=== PATIENT | male | born 1940 | race Caucasian/White ===

== ENCOUNTER 2019-04-30 09:22 | Inpatient (IN) | payer MEDICARE, BC ==
[2019-04-30] VITALS (10 sets, daily range): BP systolic 114–172; BP diastolic 55–85
[~2019-04-30] VITALS: Ht 175.3 cm; Wt 53.3 kg
--- NOTE | 2019-04-30 09:40 | NUR ---
PATIENT BROUGHT BACK FROM TRIAGE WITH CHIEF COMPLAINT OF- WORRIED HE HAD A STROKE SEVERAL DAYS AGO- REPORTS DIZZINESS, DIFFICULTY FINDING WORDS, SLURRED SPEECH, WEAKNESS. DROVE SELF HERE TODAY. DENIES THESE SYMPTOMS NOW. STATES HE HAS HX OF STROKE. ALSO WORRIED HE HAS A BACKED UP COLON. PATIENT AMBULATED FROM TRIAGE
--- NOTE | 2019-04-30 09:50 | NUR ---
PATIENT TO CT
[2019-04-30] MEDS: PLEASE ENTER ALLERGIES MC SCH ×2 (10:14→11:28)
[2019-04-30 10:26] LABS: BASOPHILS # (AUTO) 0.01 x10^3/uL (0-0.1); BASOPHILS % (AUTO) 0 % (0-1); EOSINOPHILS # (AUTO) 0.12 x10^3/uL (0-0.4); EOSINOPHILS % (AUTO) 2 % (1-7); LYMPHOCYTES # (AUTO) 1.26 x10^3/uL (1-3.4); LYMPHOCYTES % (AUTO) 20 % (22-44); MD NO; MEAN CORPUSCULAR HEMOGLOBIN 33.3 pg (27.5-34.5); MEAN CORPUSCULAR HGB CONC 33.1 g/dL (33.2-36.2); MEAN CORPUSCULAR VOLUME 100.6 fL (81-97); MONOCYTES # (AUTO) 0.64 x10^3/uL (0.2-0.8); MONOCYTES % (AUTO) 10 % (2-9); NEUTROPHILS # (AUTO) 4.27 x10^3/uL (1.8-6.8); NEUTROPHILS % (AUTO) 68 % (42-75); PLATELET COUNT 190 x10^3/uL (130-400); RED BLOOD COUNT 4.81 x10^6/uL (4.38-5.82); RED CELL DISTRIBUTION WIDTH 13.6 % (9.4-14.8)
[2019-04-30 10:39] LABS: ALBUMIN 3.8 g/dL (3.4-5.0); ANION GAP 7 mmol/L (5-15); CHLORIDE 111 mmol/L (98-107); CREATININE 1.12 mg/dL (0.7-1.3)
[2019-04-30 10:43] LABS: TROPONIN I < 0.015 ng/mL (0.000-0.045)
[2019-04-30] MEDS ORDERED: CLOPIDOGREL 75 MG TABLET ONE (10:53)
[2019-04-30 10:56] LABS: MICROSCOPIC NOT IND
--- NOTE | 2019-04-30 10:57 | NUR ---
PATIENT RESTING IN BED, LABS COLLECTED, MEDICATED ORDERED. NO NEURO CHANGES
[2019-04-30] MEDS ORDERED: CLOPIDOGREL 75 MG TABLET PO SCH (11:00)
[2019-04-30 11:01] LABS: CULTURE INDICATED? NO
--- NOTE | 2019-04-30 11:10 | NUR ---
REPORT CALLED TO JOSE MARIA NORMAN. NO QUESTIONS AT THIS TIME. PATIENT AWARE OF TRANSFER
[2019-04-30] MEDS ORDERED: POLYETHYLENE GLYCOL 17 GM PACKET PO PRN (11:30)
[2019-04-30] MEDS ORDERED: LABETALOL 5MG/ML, 20ML IV PRN (11:30)
[2019-04-30] MEDS ORDERED: ACETAMINOPHEN 325 MG TABLET PO PRN (11:30)
[2019-04-30] MEDS: ENOXAPARIN 40 MG/0.4 ML SQ SCH ×2 (11:30→12:40)
[2019-04-30] MEDS ORDERED: ENALAPRILAT 1.25 MG/ML, 2ML IV PRN (11:30)
[2019-04-30] MEDS ORDERED: DOCUSATE 100 MG CAPSULE PO PRN (11:30)
[2019-04-30] MEDS ORDERED: ONDANSETRON 2MG/ML, 2ML IVPush PRN (11:30)
[2019-04-30] MEDS ORDERED: BISACODYL 10 MG SUPP PR PRN (11:30)
[2019-04-30] MEDS: ASPIRIN 81 MG TABLET CHEW PO/NG SCH (12:40)
[2019-04-30] MEDS: SODIUM CHLORIDE 0.9% 1,000 ML IV SCH (12:41)
[2019-04-30] MEDS: LACTULOSE 10 GM/15 ML UDC PO SCH (20:36)
[2019-04-30] MEDS: ATORVASTATIN 40 MG TABLET PO SCH (20:36)
[2019-05-01] MEDS: SODIUM CHLORIDE 0.9% 1,000 ML IV SCH ×2 (00:38→14:10)
[2019-05-01 00:51] VITALS: BP 143/65
[2019-05-01 06:16] LABS: BASOPHILS # (AUTO) 0.02 x10^3/uL (0-0.1); BASOPHILS % (AUTO) 0 % (0-1); EOSINOPHILS % (AUTO) 2 % (1-7); LYMPHOCYTES # (AUTO) 1.05 x10^3/uL (1-3.4); LYMPHOCYTES % (AUTO) 16 % (22-44); MD NO; MEAN CORPUSCULAR HGB CONC 32.8 g/dL (33.2-36.2); MEAN CORPUSCULAR VOLUME 100.6 fL (81-97); MEAN PLATELET VOLUME 10.6 fL (7.4-10.4); MONOCYTES # (AUTO) 0.85 x10^3/uL (0.2-0.8); MONOCYTES % (AUTO) 13 % (2-9); NEUTROPHILS # (AUTO) 4.57 x10^3/uL (1.8-6.8); NEUTROPHILS % (AUTO) 69 % (42-75); PLATELET COUNT 199 x10^3/uL (130-400); RED BLOOD COUNT 4.72 x10^6/uL (4.38-5.82); RED CELL DISTRIBUTION WIDTH 13.7 % (9.4-14.8)
[2019-05-01 06:30] LABS: ALBUMIN 3.3 g/dL (3.4-5.0); ANION GAP 8 mmol/L (5-15); CALCIUM 8.7 mg/dL (8.5-10.1); CHLORIDE 111 mmol/L (98-107)
[2019-05-01 06:39] LABS: ALANINE AMINOTRANSFERASE 24 U/L (12-78); ALKALINE PHOSPHATASE 52 U/L (45-117); BILIRUBIN,TOTAL 1.5 mg/dL (0.2-1.0); CHOL/HDL RATIO 3.1; CHOLESTEROL, TOTAL 175 mg/dL (140-239); CREATININE 0.94 mg/dL (0.7-1.3); HDL CHOL % 33 % (26-37); HDL CHOLESTEROL (DIRECT) 57 mg/dL (40-60); LDL CHOLESTEROL,CALCULATED 105 mg/dL (54-169); LDL/HDL RATIO 1.8 (0.5-3.0); TOTAL PROTEIN 6.1 g/dL (6.4-8.2); TRIGLYCERIDES 64 mg/dL (50-200); VLDL CHOLESTEROL 13 mg/dL (0-25)
[2019-05-01 07:10] VITALS: BP 137/73
[2019-05-01] MEDS: ASPIRIN 81 MG TABLET CHEW PO/NG SCH (08:51)
[2019-05-01] MEDS: CLOPIDOGREL 75 MG TABLET PO SCH (08:51)
[2019-05-01] MEDS: NEUTRA PHOS K 250 MG TABLET PO SCH ×3 (11:59→21:10)
[2019-05-01] MEDS: ENOXAPARIN 40 MG/0.4 ML SQ SCH (12:00)
[2019-05-01] MEDS: LACTULOSE 10 GM/15 ML UDC PO SCH ×2 (12:01→21:10)
[2019-05-01 13:30] VITALS: BP 161/93
[2019-05-01] MEDS: AMLODIPINE 5 MG TABLET PO SCH ×2 (16:19→21:10)
[2019-05-01] MEDS ORDERED: NITROGLYCERIN SINGLE TAB 0.4 MG SL PRN (16:30)
[2019-05-01] MEDS ORDERED: HEPARIN 25,000 UNITS/500ML PMX 500 ML IV PRN ×2 (16:30→17:00)
[2019-05-01] MEDS ORDERED: MORPHINE SULFATE 4 MG/ML, 1ML IVPush PRN (16:30)
[2019-05-01] MEDS ORDERED: NITROGLYCERIN 0.4 MG BOTTLE (25 TABS) SL ONE (16:30)
[2019-05-01 16:32] VITALS: BP 181/86
[2019-05-01] MEDS ORDERED: HEPARIN wt. based STROKE protocol MC SCH (17:00)
[2019-05-01 17:33] LABS: TROPONIN I < 0.015 ng/mL (0.000-0.045)
[2019-05-01 17:48] VITALS: BP 152/77
[2019-05-01 19:21] VITALS: BP 163/84
[2019-05-01] MEDS: ATORVASTATIN 40 MG TABLET PO SCH (21:10)
[2019-05-01 22:05] LABS: TROPONIN I < 0.015 ng/mL (0.000-0.045)
[2019-05-02 00:45] VITALS: BP 151/73
[2019-05-02 04:56] VITALS: BP 135/76
[2019-05-02 05:34] LABS: BASOPHILS # (AUTO) 0.02 x10^3/uL (0-0.1); BASOPHILS % (AUTO) 0 % (0-1); EOSINOPHILS # (AUTO) 0.07 x10^3/uL (0-0.4); EOSINOPHILS % (AUTO) 1 % (1-7); LYMPHOCYTES # (AUTO) 0.87 x10^3/uL (1-3.4); LYMPHOCYTES % (AUTO) 12 % (22-44); MD NO; MEAN CORPUSCULAR HEMOGLOBIN 33.2 pg (27.5-34.5); MEAN CORPUSCULAR HGB CONC 33.3 g/dL (33.2-36.2); MEAN CORPUSCULAR VOLUME 99.8 fL (81-97); MEAN PLATELET VOLUME 10.6 fL (7.4-10.4); MONOCYTES # (AUTO) 0.76 x10^3/uL (0.2-0.8); MONOCYTES % (AUTO) 11 % (2-9); NEUTROPHILS # (AUTO) 5.29 x10^3/uL (1.8-6.8); NEUTROPHILS % (AUTO) 76 % (42-75); PLATELET COUNT 209 x10^3/uL (130-400); RED BLOOD COUNT 4.83 x10^6/uL (4.38-5.82); RED CELL DISTRIBUTION WIDTH 13.4 % (9.4-14.8)
[2019-05-02 05:42] LABS: CALCIUM 8.7 mg/dL (8.5-10.1); CHLORIDE 108 mmol/L (98-107)
[2019-05-02 05:50] LABS: ALANINE AMINOTRANSFERASE 24 U/L (12-78); ALBUMIN 3.3 g/dL (3.4-5.0); ALKALINE PHOSPHATASE 55 U/L (45-117); ANION GAP 6 mmol/L (5-15); BILIRUBIN,TOTAL 1.6 mg/dL (0.2-1.0); CREATININE 0.92 mg/dL (0.7-1.3); TOTAL PROTEIN 6.2 g/dL (6.4-8.2); TROPONIN I < 0.015 ng/mL (0.000-0.045)
[2019-05-02 07:19] VITALS: BP 141/74
[2019-05-02] MEDS: LACTULOSE 10 GM/15 ML UDC PO SCH ×3 (09:00→20:03)
[2019-05-02] MEDS: ASPIRIN 81 MG TABLET CHEW PO/NG SCH (10:05)
[2019-05-02] MEDS: CLOPIDOGREL 75 MG TABLET PO SCH (10:05)
[2019-05-02] MEDS: AMLODIPINE 5 MG TABLET PO SCH (10:05)
[2019-05-02 13:48] VITALS: BP 125/79
[2019-05-02] MEDS ORDERED: POTASSIUM CHLORIDE 20 MEQ TAB.ER.PRT PO ONE (14:30)
[2019-05-02] MEDS ORDERED: SIMV10TA3 PO (15:05)
[2019-05-02] MEDS ORDERED: LORA-445 PO (15:05)
[2019-05-02] MEDS ORDERED: NITR0.4T28 SL (15:05)
[2019-05-02] MEDS ORDERED: LOSA50TA14 PO (15:05)
[2019-05-02 16:35] VITALS: BP 143/75
[2019-05-02] MEDS: CARVEDILOL 3.125 MG TABLET PO SCH (17:09)
[2019-05-02 18:41] VITALS: BP 112/74
[2019-05-02] MEDS: ATORVASTATIN 40 MG TABLET PO SCH (20:03)
[2019-05-02] MEDS: APIXABAN 5 MG TABLET PO SCH (21:06)
[2019-05-03 00:02] VITALS: BP 142/79
[2019-05-03 04:00] VITALS: BP 120/73
[2019-05-03 06:50] VITALS: BP 138/82
[2019-05-03] MEDS ORDERED: AMLODIPINE 5 MG TABLET PO SCH (09:00)
[2019-05-03] MEDS ORDERED: FUROSEMIDE 20 MG/2 ML IV SCH (09:00)
[2019-05-03] MEDS ORDERED: LISINOPRIL 10 MG TABLET PO SCH (09:00)
[2019-05-03 10:45] VITALS: BP 118/68
[2019-05-03] MEDS: APIXABAN 5 MG TABLET PO SCH ×2 (10:53→20:33)
[2019-05-03] MEDS: CLOPIDOGREL 75 MG TABLET PO SCH (10:54)
[2019-05-03] MEDS: CARVEDILOL 3.125 MG TABLET PO SCH ×2 (10:55→17:26)
[2019-05-03] MEDS: LACTULOSE 10 GM/15 ML UDC PO SCH ×2 (10:56→20:33)
[2019-05-03 12:14] VITALS: BP 111/70
[2019-05-03 18:26] VITALS: BP 91/63
[2019-05-03] MEDS: ATORVASTATIN 40 MG TABLET PO SCH (20:33)
[2019-05-04 00:17] VITALS: BP 97/61
[2019-05-04 05:23] VITALS: BP 105/65
[2019-05-04] MEDS: CARVEDILOL 3.125 MG TABLET PO SCH ×2 (05:25→19:05)
[2019-05-04 06:40] VITALS: BP 114/68
[2019-05-04] MEDS: LACTULOSE 10 GM/15 ML UDC PO SCH ×3 (09:00→19:26)
[2019-05-04] MEDS: CLOPIDOGREL 75 MG TABLET PO SCH (09:16)
[2019-05-04] MEDS: APIXABAN 5 MG TABLET PO SCH ×2 (09:16→19:26)
[2019-05-04 12:32] VITALS: BP 121/74
[2019-05-04] MEDS ORDERED: LORazepam 2 MG/ML, 1ML IVPush ONE (13:00)
[2019-05-04 19:22] VITALS: BP 96/58
[2019-05-04] MEDS: ATORVASTATIN 40 MG TABLET PO SCH (19:26)
[2019-05-05 01:14] VITALS: BP 107/67
[2019-05-05 05:07] VITALS: BP 118/70
[2019-05-05] MEDS: CARVEDILOL 3.125 MG TABLET PO SCH (05:16)
[2019-05-05 07:07] VITALS: BP 112/67
[2019-05-05] MEDS ORDERED: LISINOPRIL 5 MG TABLET PO SCH (09:00)
[2019-05-05] MEDS: LACTULOSE 10 GM/15 ML UDC PO SCH (09:00)
[2019-05-05] MEDS: APIXABAN 5 MG TABLET PO SCH (10:31)
[2019-05-05] MEDS: CLOPIDOGREL 75 MG TABLET PO SCH (10:31)
[2019-05-05] MEDS ORDERED: APIX5TAB PO (11:23)
[2019-05-05] MEDS ORDERED: ATOR40TA78 PO (11:23)
[2019-05-05] MEDS ORDERED: LISI5TAB7 PO (11:23)
[2019-05-05] MEDS ORDERED: DOCU100C33 PO (11:23)
[2019-05-05] MEDS ORDERED: CLOP75TA PO (11:23)
[2019-05-05] MEDS ORDERED: CARV3.1212 PO (11:23)
== END 2019-05-05 13:55 | disposition home health service (06) | DRG 69 ==
LOC: ED 10:40 → UNDOADMOB 11:09 → INTOOBSV 11:09 → EDIP 11:09 → OBSVTOIN 11:14 → EDIP 11:14 → 4EST 11:30 → DCLOUNGE 05-05 13:32
PROVIDERS: ADMIT Internal Medicine; ATTEND Internal Medicine
DX: G45.9 Transient cerebral ischemic attack, unspecified (principal); I50.23 Acute on chronic systolic (congestive) heart failure; I11.0 Hypertensive heart disease with heart failure; I25.5 Ischemic cardiomyopathy; I51.3 Intracardiac thrombosis, not elsewhere classified; I25.10 Atherosclerotic heart disease of native coronary artery without angina pectoris; Z88.5 Allergy status to narcotic agent; D75.89 Other specified diseases of blood and blood-forming organs; E86.0 Dehydration; F41.9 Anxiety disorder, unspecified; K59.00 Constipation, unspecified; Z53.20 Procedure and treatment not carried out because of patient's decision for unspecified reasons; Z79.02 Long term (current) use of antithrombotics/antiplatelets; Z79.899 Other long term (current) drug therapy; Z95.5 Presence of coronary angioplasty implant and graft; I95.9 Hypotension, unspecified
CPT/HCPCS: 36415; 70450; 70551; 74018; 80048; 80053; 80061; 81003; 82040; 82607; 82962; 83735; 84100; 84443; 84484; 85025; 85520; 93005; 93306; 93880; 96372; G0378; J1644; J1650; 92522-GN; J1940; J2060; J2270; J7030